=== PATIENT | male | born 1960 | race Asian ===

== ENCOUNTER 2016-12-14 08:10 | Emergency (ER) | payer OTHER ==
[~2016-12-14] VITALS: Ht 182.9 cm; Wt 90.7 kg
[2016-12-14 08:20] VITALS: TEMP 98.5
[2016-12-14 08:37] LABS: PLATELET COUNT 364 K/uL (142-355)
[2016-12-14 08:44] LABS: POTASSIUM 4.3 mmol/L (3.6-5.2)
[2016-12-14 09:58] VITALS: BP 142/83
== END 2016-12-14 10:02 | disposition home or self-care (01) ==
LOC: ED 08:10
DX: J06.9 Acute upper respiratory infection, unspecified (principal); R04.2 Hemoptysis; C90.00 Multiple myeloma not having achieved remission; F12.10 Cannabis abuse, uncomplicated; R00.0 Tachycardia, unspecified
CPT/HCPCS: 80053; 80307; 81000; 82550; 83880; 84484; 85007; 85027; 87040; 93005; 96365; 99283; G0479

== ENCOUNTER 2018-06-12 15:07 | Emergency (ER) | payer OTHER ==
[~2018-06-12] VITALS: Ht 185.4 cm; Wt 95.3 kg
[2018-06-12 15:57] LABS: PLATELET COUNT 429 K/uL (142-355)
[2018-06-12 16:46] LABS: POTASSIUM 4.4 mmol/L (3.6-5.2)
[2018-06-12 17:33] LABS: PARTIAL THROMBOPLASTIN TIME 26.6 SECONDS (24.5-33.6)
[2018-06-12 18:10] VITALS: BP 133/81; TEMP 97.8
== END 2018-06-12 18:10 | disposition short-term general hospital (02) ==
LOC: ED 15:07
DX: I21.3 ST elevation (STEMI) myocardial infarction of unspecified site (principal); I47.1 Supraventricular tachycardia
CPT/HCPCS: 36415; 80053; 82550; 82553; 84484; 85027; 85610; 85730; 93005; 96361; 96365; 96375; 99285; J0153; J1644; J3490